=== PATIENT | female | born 1985 | race Two or more races ===

== ENCOUNTER 2017-02-18 17:30 | Observation (INO) | payer MEDICAID ==
[~2017-02-18 17:30] MED LIST: PRENCAP87 PO
[2017-02-18] MEDS ORDERED: LACTATED RINGER'S 1,000 ML IV ONE (18:13)
[2017-02-18] MEDS: TERBUTALINE SULFATE 1 MG/ML 1ML VIAL SC SCH ×3 (18:35→19:24)
== END 2017-02-18 19:58 | disposition home or self-care (01) | DRG 563 ==
LOC: LDRP 17:30
PROVIDERS: ADMIT Specialist; ATTEND Specialist
DX: O60.03 Preterm labor without delivery, third trimester (principal); Z3A.31 31 weeks gestation of pregnancy
CPT/HCPCS: 59025; 81002; 94760; 96360; 96361; 96372; G0378; J3105; 76818; 96366

== ENCOUNTER 2017-02-20 10:46 | Observation (INO) | payer MEDICAID | END 2017-02-20 15:10 | disposition home or self-care (01) | DRG 566 | LOC: LDRP 10:46 | PROVIDERS: ADMIT Specialist; ATTEND Specialist | DX: O24.419 Gestational diabetes mellitus in pregnancy, unspecified control (principal); Z3A.31 31 weeks gestation of pregnancy | CPT/HCPCS: 59025; 81002; G0378 ==

== ENCOUNTER 2017-02-24 13:50 | Observation (INO) | payer MEDICAID | END 2017-02-24 14:55 | disposition home or self-care (01) | DRG 563 | LOC: LDRP 13:50 | PROVIDERS: ADMIT Obstetrics & Gynecology; ATTEND Obstetrics & Gynecology | DX: O60.03 Preterm labor without delivery, third trimester (principal); Z3A.32 32 weeks gestation of pregnancy | CPT/HCPCS: 59025; 76818; 81002; G0378 ==

== ENCOUNTER 2017-02-27 10:50 | Observation (INO) | payer MEDICAID | END 2017-02-27 12:10 | disposition home or self-care (01) | DRG 563 | LOC: LDRP 10:50 | PROVIDERS: ADMIT Obstetrics & Gynecology; ATTEND Obstetrics & Gynecology | DX: O60.03 Preterm labor without delivery, third trimester (principal); Z3A.32 32 weeks gestation of pregnancy | CPT/HCPCS: 59025; 76818; 81002; G0378 ==

== ENCOUNTER 2017-03-06 11:00 | Observation (INO) | payer MEDICAID ==
[2017-03-11] MEDS ORDERED: NIF10C GT (17:49)
== END 2017-03-06 11:45 | disposition home or self-care (01) | DRG 955 ==
LOC: LDRP 11:00
PROVIDERS: ADMIT Specialist; ATTEND Specialist
DX: O26.899 Other specified pregnancy related conditions, unspecified trimester (principal); Z3A.00 Weeks of gestation of pregnancy not specified
CPT/HCPCS: G0378

== ENCOUNTER 2017-03-10 13:15 | Observation (INO) | payer MEDICAID ==
[2017-03-11] MEDS ORDERED: NIF10C GT (17:49)
== END 2017-03-10 14:55 | disposition home or self-care (01) | DRG 566 ==
LOC: LDRP 13:15
PROVIDERS: ADMIT Obstetrics & Gynecology; ATTEND Obstetrics & Gynecology
DX: O26.893 Other specified pregnancy related conditions, third trimester (principal); Z3A.34 34 weeks gestation of pregnancy
CPT/HCPCS: 59025; 76818; 81002; G0378

== ENCOUNTER 2017-03-17 12:00 | Observation (INO) | payer MEDICAID ==
[~2017-03-17 12:00] MED LIST changes: +NIF10C GT
== END 2017-03-17 13:00 | disposition home or self-care (01) | DRG 563 ==
LOC: LDRP 12:00
PROVIDERS: ADMIT Specialist; ATTEND Specialist
DX: O60.03 Preterm labor without delivery, third trimester (principal); Z3A.35 35 weeks gestation of pregnancy
CPT/HCPCS: 59025; 76818; 81002; G0378

== ENCOUNTER 2017-03-24 12:05 | Observation (INO) | payer MEDICAID | END 2017-03-24 14:09 | disposition home or self-care (01) | DRG 566 | LOC: LDRP 12:05 | PROVIDERS: ADMIT Obstetrics & Gynecology; ATTEND Obstetrics & Gynecology | DX: O24.419 Gestational diabetes mellitus in pregnancy, unspecified control (principal); Z3A.36 36 weeks gestation of pregnancy | CPT/HCPCS: 59025; 76818; 81002; G0378 ==

== ENCOUNTER 2017-03-31 11:00 | Observation (INO) | payer MEDICAID | END 2017-03-31 12:20 | disposition home or self-care (01) | DRG 566 | LOC: LDRP 11:00 | PROVIDERS: ADMIT Specialist; ATTEND Specialist | DX: O62.9 Abnormality of forces of labor, unspecified (principal); E03.9 Hypothyroidism, unspecified; O99.283 Endocrine, nutritional and metabolic diseases complicating pregnancy, third trimester; Z3A.37 37 weeks gestation of pregnancy | CPT/HCPCS: 59025; 76818; 81002; G0378 ==

== ENCOUNTER 2017-04-08 11:10 | Observation (INO) | payer MEDICAID | END 2017-04-08 12:30 | disposition home or self-care (01) | DRG 566 | LOC: LDRP 11:10 | PROVIDERS: ADMIT Obstetrics & Gynecology; ATTEND Obstetrics & Gynecology | DX: O62.9 Abnormality of forces of labor, unspecified (principal); Z3A.38 38 weeks gestation of pregnancy | CPT/HCPCS: 59025; G0378 ==